=== PATIENT | female | born 1990 | race Caucasian/White ===

== ENCOUNTER → 2022-06-21 13:44 | Outpatient (REF) | payer OTHER, SELFPAY ==
--- NOTE | 2022-06-21 13:56 | CA_ITS ---
Transthoracic Echocardiogram Patient (Last, First, Middle): Saida Joiner, Gender: Female Date of : 1990 Age: 32 Procedure Date: 06/21/2022 Procedure Type: Transthoracic Echocardiogram Location: OP Height: 165.1 cm Weight: 127.92 kg BSA: 2.29 m2 Heart Rate: 84 bpm BP: 110 / 80 mmHg Customer Advisor: RULA Referring MD: Karis Cooney NP Symptoms: PALPITATIONS Study Quality: Fair ECG Rhythm: Sinus Conclusions: - The left ventricular systolic function is normal. The calculated ejection fraction is 61% by biplane method. - No obvious valvular pathology seen on this study. Findings Left Ventricle Normal left ventricular cavity size. There is normal left ventricular wall thickness. The left ventricular systolic function is normal. The calculated ejection fraction is 61% by biplane method. There is no evidence of regional wall motion abnormalities. Diastolic function is normal for age. Right Ventricle Normal right ventricular cavity size and systolic function. Atria Both atria are normal in size. Aortic Valve There is a normal trileaflet aortic valve. There is no aortic valve stenosis. There is no aortic valve regurgitation. Mitral Valve The mitral valve appears normal. There is no mitral valve regurgitation. There is no mitral valve stenosis. Pulmonic Valve The pulmonic valve is likely normal. Tricuspid Valve There is trace tricuspid valve regurgitation. There is no evidence of pulmonary hypertension. Great Vessels The asc aorta is normal in size. Venous The inferior vena cava was not well visualized. The inferior vena cava is normal in size. Pericardium/Pleural There is no evidence of pericardial effusion. Prior Study Comparison No prior study available for comparison. Recommendations, Care & Conclusions No obvious valvular pathology seen on this study. Measurements 2D Linear Measurements IVSd: 1.00 0.6-0.9/0.6-1.0 cm LVIDd: 3.94 3.9-5.3/4.2-5.9 cm LVIDd Index: 1.72 2.4-3.2/2.2-3.1 cm/m2 LVIDs: 2.20 2.0-3.6 cm LVPWd: 0.98 0.7-1.1 cm LA Diam: 3.30 2.7-3.8/3.0-4.0 cm LAIDs Index: 1.44 1.5-2.3 cm/m2 LV Mass: 151.62 67-162/88-224 g LV Mass Index: 66.21 43-95/49-115 g/m2 LVOT Diam: 2.00 3.0+(-)1.3 cm 2D Systolic Function EF 4C: 60.50 >55% EF 2C: 61.20 >55% EF BiP: 61.20 >55% Mitral Valve MV Pk E: 0.69 MV PK A: 0.46 MV Decel Time: 211.00 E/A: 1.50 E'Lateral: 10.30 E'Medial: 9.46 E/E' Med: 7.30 E/E' Lat: 6.70 PHT: 62.00 MVA PHT: 3.55 Decel Daniels: 3.27 Aortic Valve AoV Pk Arthur: 1.34 AoV Mn Arthur: 0.92 AoV VTI: 0.25 AoV Pk Grad: 7.00 Aov Mn Grad: 4.00 MARTHA Cont.VTI: 2.69 LVOT LVOT Pk Arthur: 1.11 LVOT Mn Arthur: 0.73 LVOT VTI: 0.22 LVOT Pk Grad: 5.00 LVOT Mn Grad: 3.00 LVOT Diam: 2.00 LVOT Area: 3.14 Diastolic Function MV Pk E: 0.69 MV Pk A: 0.46 E/A: 1.50 E'Medial: 9.46 E/E' Med: 7.30 E' Laterial: 10.30 E/E' Lat: 6.70 Right Ventricle TAPSE (mm): 21.20 TVS' Arthur: 12.60 Tricuspid Valve TR Pk Arthur: 1.59 TR Pk Grad: 10.00 Great Vessels Aorta Sinus of Valsalva: 3.20 2.0-3.5 cm Ao Asc: 2.60 2.1-3.4 cm Pulmonary Valve PV Pk Arthur: 0.84 Peak PV Grad: 3.00 Updated in Other Vendor System with Status of Final Garo Arauz MD electronically signed on 06/21/2022 3:31:32 PM with status of Final
== END ==
LOC: HO.CARD 13:44
PROVIDERS: PCP Internal Medicine; Visit Provider Nurse Practitioner
DX: R07.9 Chest pain, unspecified (principal)
CPT/HCPCS: 93306